=== PATIENT | male | born 2000 | race Caucasian/White ===

== ENCOUNTER 2024-08-28 15:43 | Emergency (ER) | payer OTHER, SELFPAY ==
[2024-08-28 16:48] VITALS: BP 123/80; PULSE 65; O2SAT 98
[2024-08-28 16:58] VITALS: BP 123/80; PULSE 60; RESP 18; TEMP 36.8; O2SAT 100; BMI 28.7
[2024-08-28 16:58] LABS: Coronavirus 19, PCR Not Detected (NotDetected); Influenza A, PCR Not Detected (NotDetected); Influenza B, PCR Not Detected (NotDetected)
[2024-08-28 17:00] VITALS: BP 124/84; PULSE 62; O2SAT 96
[2024-08-28 17:24] VITALS: BP 124/84; PULSE 80; RESP 17; TEMP 36.8; O2SAT 98
--- NOTE | 2024-08-28 17:33 | ED_ITS ---
Discharge Plan Disposition Patient Disposition: Home, Self-Care Condition: Good Prescriptions Prescriptions: New fluticasone propionate [Flonase Allergy Relief] 50 mcg/actuation spray,suspension 1 spray intranasal DAILY Qty: 16 0RF Rx Instructions: administer into each nostril kbziltuodkbudfa-abvnbbmfy-CC [Bromfed DM] 2-30-10 mg/5 mL syrup 5 ml PO Q6H PRN (Reason: cold symptoms) Qty: 118 0RF Referrals Follow up/Referrals: Provider,Referral, [Primary Care Provider] - See instructions Activity Restrictions/Add. Instructions Additional Instructions/Restrictions: You were evaluated in the emergency department today. We feel your symptoms are the result of a viral upper respiratory infection. Your swab is pending at this time. Please take Tylenol and ibuprofen every 4-6 hours as needed for pain or fever. 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 Follow-up closely with your primary care provider. Return to the emergency department for new or worsening symptoms Clinical Impressions Clinical Impression: Viral URI with cough Stand Alone Forms Stand Alone Forms: Work/School Release Instructions Patient Instructions: DI for Viral Upper Respiratory Infection -- Adult, DI for Viral Syndrome Print Language Print Language: [place] Discharge ED Provider: Ruby Oswald General Adult HPI General Chief complaint: Upper Respiratory Infection Stated complaint: Cough,runny nose,no taste Time Seen by Provider: 08/28/24 16:44 Mode of Arrival: Ambulatory Source of Information: Patient Description of Symptoms (Recalled from ER Triage Doc. by RN): Pt presents for evaluation of nasal congestion/drainage, coughing and lack of taste x 3 days. History of Present Illness HPI narrative: This patient is a 24-year-old male without significant past medical history presenting to the emergency department for evaluation with concern for nasal congestion, drainage, cough, and lack of taste for 3 days. His at home was recently sick as well. No other concerns noted at this time Related Data Previous Rx's ?Medication ?Instructions ?Recorded manzhfnhhzrgsgu-gyjksvwvjnmvvfs-IO 5 ml PO Q6H PRN cold symptoms #118 08/28/24 2 mg-30 mg-10 mg/5 mL oral syrup mL (Bromfed DM) fluticasone propionate 50 1 spray intranasal DAILY #16 grams 08/28/24 mcg/actuation nasal spray,suspension (Flonase Allergy Relief) Allergies Allergy/AdvReac Type Severity Reaction Status Date / Time No Known Allergies Allergy Verified 08/28/24 17:18 [facility] Disclaimer: The information contained in this section may have been updated after the p atient was seen, as this information can be updated by other users. Social History Smoking Status: Current every day smoker alcohol intake: never current occupational status: employed Travel in the last 8 weeks?: None ROS Obtained: Yes All systems reviewed & no additional complaints except as documented Physical Exam General General appearance: alert and in no apparent distress Head Head exam: atraumatic and normocephalic Eye Eye exam: Present normal appearance, PERRL and EOMI ENT ENT exam: Present normal exam, normal oropharynx, mucous membranes moist and normal external ear exam Neck Neck exam: Present normal inspection, full ROM and trachea midline; Absent tenderness Chest Chest inspection: Present normal inspection and symmetric chest wall rise; Absent tenderness Respiratory Respiratory exam: Present normal lung sounds bilaterally; Absent respiratory distress, wheezes, stridor or accessory muscle use Cardiovascular Cardiovascular exam: Present regular rate and normal rhythm Abdominal Exam Abdominal exam: Present soft; Absent distention, tenderness or guarding Extremities Exam Extremities exam: Present normal inspection, full ROM and normal capillary refill; Absent tenderness or edema Back Exam Back exam: Present normal inspection and full ROM; Absent tenderness Neurological Exam Neurological exam: Present alert, oriented X3, CN II-XII intact and normal gait; Absent motor sensory deficit Psychiatric Psychiatric exam: Present normal affect and normal mood Skin Skin exam: Present warm and dry Medical Decision Making Medical Records Medical records reviewed: Yes I reviewed the patient's medical records. Screening: Per USPSTF and CDC recommendations, given the prevalence of disease in our region, it is our hospital?s policy to screen for HIV and viral Hepatitis for all patients aged 18 and over and those with ongoing risk factors. [place] Inquiry Pt receiving controlled substance: No Vital Signs: 08/28/24 16:48 08/28/24 16:58 08/28/24 17:00 Temperature 98.3 F Temperature Source Oral Pulse Rate 65 62 Pulse Rate [Right] 60 Respiratory Rate 18 Blood Pressure 123/80 124/84 Blood Pressure [Right Arm] 123/80 Blood Pressure Mean [Right Arm] 94 Blood Pressure Source Blood Pressure Source [Right Arm] Automatic Cuff Blood Pressure Position [Right Arm] Sitting 02 Sat by Pulse Oximetry 98 100 96 Oxygen Delivery Method Room Air Room Air Room Air 08/28/24 17:24 Temperature 98.3 F Temperature Source Oral Pulse Rate 80 Pulse Rate [Right] Respiratory Rate 17 Blood Pressure 124/84 Blood Pressure [Right Arm] Blood Pressure Mean [Right Arm] Blood Pressure Source Automatic Cuff Blood Pressure Source [Right Arm] Blood Pressure Position [Right Arm] 02 Sat by Pulse Oximetry Oxygen Delivery Method Room Air Lab Data Lab results reviewed: Yes I reviewed the patient's lab results. Orders (Tests/Meds): ORDERS Category Date Time Status Rapid PCR Covid and Flu A/B Stat Lab 08/28/24 16:53 Received Medical Decision Narrative: In summary, this patient is a 24-year-old male presenting to the Emergency Department for evaluation of congestion, cough, lack of taste. Differential diag noses considered include but are not limited to viral syndrome, pneumonia, pharyngitis, allergic rhinitis. Ruling out the most morbid conditions drove assessment. On exam, the patient is well-appearing with no focal findings on exam to suggest acute bacterial infection. I feel he likely has a viral syndrome, especially since his at home was also sick. COVID/flu swab was sent and is pending. I do feel the patient is appropriate for discharge with instructions for supportive management. I provided prescriptions for Bromfed and Flonase and discharged the patient with instructions for close follow-up on an outpatient basis and strict return precautions Critical Care Critical Care Time Critical Care Time: No
== END 2024-08-28 17:26 | disposition home or self-care (01) ==
PROVIDERS: Emergency Provider Emergency Medicine
DX: R09.81 Nasal congestion (principal); J06.9 Acute upper respiratory infection, unspecified; R05.9 Cough, unspecified; F17.210 Nicotine dependence, cigarettes, uncomplicated
CPT/HCPCS: 87636; 99283

== ENCOUNTER 2024-08-31 12:57 | Emergency (ER) | payer OTHER, SELFPAY ==
[2024-08-31 13:02] VITALS: BP 116/72; PULSE 59; RESP 18; TEMP 36.8; O2SAT 100; BMI 28.7
--- NOTE | 2024-08-31 13:21 | XR_ITS ---
FINAL REPORT TECHNIQUE: Chest PA & Lateral CLINICAL HISTORY: New productive cough COMPARISON: None FINDINGS: 2 views of the chest were performed. The heart size is normal. The mediastinum is within normal limits. There is no acute cardiopulmonary process. There are no pleural effusions. There is no pneumothorax. The bony thorax appears intact. IMPRESSION: No acute cardiopulmonary process. Reviewed, Interpreted and Dictated by Tristin Mackay MD Transcribed by Leydi Demarco Authenticated and [facility]
[2024-08-31] MEDS: predniSONE 20MG TAB 40 MG PO (13:39)
--- NOTE | 2024-08-31 14:08 | ED_ITS ---
Discharge Plan Disposition Patient Disposition: Home, Self-Care Prescriptions Prescriptions: New prednisone 20 mg tablet 40 mg PO DAILY 5 Days Qty: 10 0RF No Action fluticasone propionate [Flonase Allergy Relief] 50 mcg/actuation spray,suspens ion 1 spray intranasal DAILY Qty: 16 0RF Rx Instructions: administer into each nostril eomzzkrdjvfbcck-ifkxvswce-FA [Bromfed DM] 2-30-10 mg/5 mL syrup 5 ml PO Q6H PRN (Reason: cold symptoms) Qty: 118 0RF Referrals Follow up/Referrals: Provider,Referral, MD [Primary Care Provider] - See instructions Activity Restrictions/Add. Instructions Additional Instructions/Restrictions: Call your family doctor to establish care for this visit to the emergency department and schedule follow-up within 48 hours to ensure improvement. If you have any worsening of your condition or any other concerning signs or symptoms, return to the emergency department or your primary care doctor for further evaluation. Clinical Impressions Clinical Impression: Bronchitis Print Language Print Language: Romanian Discharge ED Provider: Dave Stiles General Adult HPI General Chief complaint: Upper Respiratory Infection Stated complaint: Coughing up blood Time Seen by Provider: 08/31/24 13:01 Mode of Arrival: Ambulatory Source of Information: Patient Description of Symptoms (Recalled from ER Triage Doc. by RN): Pt presents for further evaluation of cough and congestion. States he has been coughing up blood tinged sputum. Pt states he also needs a doctors note. History of Present Illness HPI narrative: Please note that above description of symptoms, in this electronic medical record under categorization of recalled from ER triage doctor by RN are reflective of an initial nursing assessment, however, is not reflective of my full history and physical exam that was personally taken and clarified. Consequentially, this preceding description of symptoms, which may include the patient's categorized chief complaint in the EMR, do not reflect my personal clinical impression, and the ultimate description of history of present illness and patient stated complaints should be deferred to this section of the note. Unless stated otherwise or congruent with this section of the note, additional signs, symptoms, or incongruence should be interpreted as inaccurate with my clinical impression. Related Data Previous Rx's ?Medication ?Instructions ?Recorded dgmjgvnkurppebu-fsobhldkmlspgvy-TB 5 ml PO Q6H PRN cold symptoms #118 08/28/24 2 mg-30 mg-10 mg/5 mL oral syrup mL (Bromfed DM) fluticasone propionate 50 1 spray intranasal DAILY #16 grams 08/28/24 mcg/actuation nasal spray,suspension (Flonase Allergy Relief) prednisone 20 mg tablet 40 mg (2 x 20 mg) PO DAILY 5 days 08/31/24 #10 tabs Allergies Allergy/AdvReac Type Severity Reaction Status Date / Time No Known Allergies Allergy Verified 08/28/24 17:18 [facility] Disclaimer: The information contained in this section may have been updated after the patient was seen, as this information can be updated by other users. Social History (Updated 08/28/24 @ 17:34 by Ruby Oswald DO) Smoking Status: Never smoker alcohol intake: never current occupational status: employed Travel in the last 8 weeks?: None Have you lived/traveled outside US in past 30 days?: No Contact w/someone who lives/traveled outside US past 30 days?: No Exposure to someone with infectious disease in past 14 days?: No Do you have a fever (greater than 100.4 F or 38 C)?: No Have you tested positive for COVID-19?: No Exposed to someone with COVID-19 in past 14 days?: No Do you have a sore throat?: No Do you have a cough?: Yes Do you have any weakness?: No Do you have any diarrhea?: No Are you experiencing any unusual bleeding?: No Do you have any muscle aches/pain?: No Do you have any abdominal pain?: No Are you experiencing loss of taste or smell?: No ROS Obtained: Yes All systems reviewed & no additional complaints except as documented Physical Exam General General appearance: alert Head Head exam: atraumatic and normocephalic Eye Eye exam: Present normal appearance, PERRL and EOMI Neck Neck exam: Present normal inspection, full ROM and trachea midline Respiratory Respiratory exam: Absent respiratory distress, wheezes, stridor, accessory muscle use or prolonged expiratory phase Cardiovascular Cardiovascular exam: Present other (Pulses equal symmetric in upper and lower extremities) Abdominal Exam Abdominal exam: Present soft; Absent distention, tenderness or pulsatile mass Extremities Exam Extremities exam: Absent edema Neurological Exam Neurological exam: Present alert, oriented X3 and CN II-XII intact; Absent motor sensory deficit Skin Skin exam: Present warm and dry; Absent diaphoresis or erythema Medical Decision Making Medical Records Medical records reviewed: Yes I reviewed the patient's medical records. Screening: Per USPSTF and CDC recommendations, given the prevalence of disease in our region, it is our hospital?s policy to screen for HIV and viral Hepatitis for all patients aged 18 and over and those with ongoing risk factors. Franklyn Inquiry Pt receiving controlled substance: No Franklyn was queried for this patient: No Vital Signs: 08/31/24 13:02 Temperature 98.3 F Temperature Source Oral Pulse Rate [Right] 59 L Respiratory Rate 18 Blood Pressure [Right Arm] 116/72 Blood Pressure Mean [Right Arm] 86 Blood Pressure Source [Right Arm] Automatic Cuff Blood Pressure Position [Right Arm] Sitting 02 Sat by Pulse Oximetry 100 Oxygen Delivery Method Room Air Orders (Tests/Meds): ED MEDICATIONS Discontinued Medications Generic Name Dose Route Start Last Admin Trade Name Freq PRN Reason Stop Dose Admin Prednisone 40 mg 08/31/24 13:21 08/31/24 13:39 Prednisone 20mg Tab PO 08/31/24 13:22 40 mg ONCE ONE Administration ORDERS Category Date Time Status CXR 2 view (NOT portable) [XR chest 2V] Stat Exams 08/31/24 13:21 Taken Medical Decision Narrative: 24-year-old male presenting with cough. States that he has been coughing for the past few days, came and was given a cough medicine which did not seem to help, so he stopped taking it. Intermittently coughing up small flecks of dark red blood. No fevers, chills, nausea, vomiting, blood in his stool, vomiting, abdominal pain, chest pain, etc. History was obtained via conversation with patient. On arrival, patient hemodynamically stable, alert, oriented x4, appropriate, GCS 15, moving all extremities spontaneously, pupils equal and reactive to light. Full physical exam performed and significant for well- appearing male no acute distress. Lungs are clear anterior and posterior bilaterally, speaking full sentences. Differential includes bronchitis, pneumon ia, among others. Patient was given 40 mg prednisone. Chest x-ray ordered and independently interpreted. It is appears that he has bronchial inflammation, no consolidation. Because patient at baseline without signs or symptoms of clinical decompensation, deemed appropriate for discharge. Results were relayed to patient who voiced understanding and were agreeable to outpatient management and follow up. I discussed my clinical impression with patient and answered all questions. At this time, the evidence for any other entities in the differential is insufficient to warrant any further testing or ED observation. This was explained as well. Advisory was given that persistent or worsening symptoms require further evaluation. I confirmed the understanding of this discussion. Promotions Officer disclaimer Much of this encounter note is an electronic engine specialist spoken language to printed text. Electronic engine specialist of the spoken language may permit errors. Although I have reviewed the note, some errors may still exist. Critical Care Critical Care Time Critical Care Time: No
[2024-08-31 14:46] VITALS: BP 110/65; PULSE 61; RESP 16; TEMP 36.6; O2SAT 96
== END 2024-08-31 14:46 | disposition home or self-care (01) ==
PROVIDERS: Emergency Provider Emergency Medicine
DX: J20.9 Acute bronchitis, unspecified (principal)
CPT/HCPCS: 71046; 99283

== ENCOUNTER 2024-09-03 13:09 | Emergency (ER) | payer OTHER, SELFPAY ==
[2024-09-03 13:38] VITALS: BP 129/78; PULSE 62; RESP 14; O2SAT 96
[2024-09-03 14:07] VITALS: BP 134/86; PULSE 66; RESP 20; TEMP 36.8; O2SAT 99; BMI 26.1
--- NOTE | 2024-09-03 15:08 | ED_ITS ---
<Statement entered by Rosalino Laird MD - 09/03/24 15:59> I was consulted by the KUMAR, and we discussed the complexity of the problems being addressed. I approved the treatment and management plan for this patient's care in the emergency department, thus performing a substantive portion of the medical decision making. Rosalino Laird MD, JOSEF, FACEP Discharge Plan Disposition Patient Disposition: Home, Self-Care Prescriptions Prescriptions: No Action fluticasone propionate [Flonase Allergy Relief] 50 mcg/actuation spray,suspension 1 spray intranasal DAILY Qty: 16 0RF Rx Instructions: administer into each nostril ikercftvxqwbaco-vunafsuxq-KF [Bromfed DM] 2-30-10 mg/5 mL syrup 5 ml PO Q6H PRN (Reason: cold symptoms) Qty: 118 0RF prednisone 20 mg tablet 40 mg PO DAILY 5 Days Qty: 10 0RF Referrals Follow up/Referrals: Provider,Referral, [Primary Care Provider] - See instructions Activity Restrictions/Add. Instructions Additional Instructions/Restrictions: Increase fluids and rest. Continue to take steroids. May also take allergy pill Zyrtec or Claritin daily for other symptoms. Clinical Impressions Clinical Impression: Viral URI with cough Stand Alone Forms Stand Alone Forms: Work/School Release Instructions Patient Instructions: Common Cold Print Language Print Language: Azerbaijani Discharge ED Provider: Rosalino Laird General Adult HPI General Chief complaint: Upper Respiratory Infection Stated complaint: upper respiratory infection+ Time Seen by Provider: 09/03/24 14:16 Mode of Arrival: Ambulatory Description of Symptoms (Recalled from ER Triage Doc. by RN): seen here on for uri and given steroids aint any better History of Present Illness HPI narrative: This is a 24-year-old male who presents to the ED today for complaint of not being better after being seen here on . He states that he has had x- rays of his lungs and they were inflamed. He says he has had cough for 3 days with some mucus coming out. He was diagnosed with bronchitis and an upper respiratory infection when he was seen. Patient was placed on steroids and has 2 days left of taking his steroids. He feels like he is just not better. He denies any other symptoms at this time. He says he initially came in just for a work note but then his girlfriend wanted him to be seen again today. He and I d iscussed this and I will listen to his lungs and his lungs were clear today. His exam was negative today. Related Data Previous Rx's ?Medication ?Instructions ?Recorded tikpfmpgkxhrjsi-bheknrhzufscyxf-GR 5 ml PO Q6H PRN cold symptoms #118 08/28/24 2 mg-30 mg-10 mg/5 mL oral syrup mL (Bromfed DM) fluticasone propionate 50 1 spray intranasal DAILY #16 grams 08/28/24 mcg/actuation nasal spray,suspension (Flonase Allergy Relief) prednisone 20 mg tablet 40 mg (2 x 20 mg) PO DAILY 5 days 08/31/24 #10 tabs Allergies Allergy/AdvReac Type Severity Reaction Status Date / Time No Known Allergies Allergy Verified 08/28/24 17:18 [facility] Disclaimer: The information contained in this section may have been updated after the patient was seen, as this information can be updated by other users. Social History (Updated 08/28/24 @ 17:34 by Ruby Oswald DO) Smoking Status: Current every day smoker alcohol intake: never current occupational status: employed Travel in the last 8 weeks?: None Have you lived/traveled outside US in past 30 days?: No Contact w/someone who lives/traveled outside US past 30 days?: No Exposure to someone with infectious disease in past 14 days?: No Do you have a fever (greater than 100.4 F or 38 C)?: No Have you tested positive for COVID-19?: No Exposed to someone with COVID-19 in past 14 days?: No Do you have a sore throat?: No Do you have a cough?: No Do you have any weakness?: No Do you have any diarrhea?: No Are you experiencing any unusual bleeding?: No Do you have any muscle aches/pain?: No Do you have any abdominal pain?: No Are you experiencing loss of taste or smell?: No Other Medical History Have you received the Flu Vaccine for this season: No Have you received the Pneumonia Vaccine: No ROS Obtained: Yes Systems reviewed as appropriate & no additional complaints except as documented Constitutional Constitutional: Reports as per HPI Physical Exam General General appearance: alert and in no apparent distress Head Head exam: atraumatic and normocephalic Eye Eye exam: Present normal appearance, PERRL and EOMI ENT ENT exam: Present normal exam, normal oropharynx and mucous membranes moist Neck Neck exam: Present normal inspection, full ROM and trachea midline Respiratory Respiratory exam: Present normal lung sounds bilaterally Cardiovascular Cardiovascular exam: Present regular rate, normal rhythm, normal heart sounds, +S1 and +S2 Abdominal Exam Abdominal exam: Present soft and normal bowel sounds Extremities Exam Extremities exam: Present normal inspection, full ROM and normal capillary refill Neurological Exam Neurological exam: Present alert, oriented X3 and normal gait Skin Skin exam: Present warm, dry and intact Medical Decision Making Medical Records Screening: Per USPSTF and CDC recommendations, given the prevalence of disease in our region, it is our hospital?s policy to screen for HIV and viral Hepatitis for all patients aged 18 and over and those with ongoing risk factors. Franklyn Inquiry Pt receiving controlled substance: No Frank[place] was queried for this patient: No Vital Signs: 09/03/24 13:38 09/03/24 14:07 09/03/24 15:27 Temperature 98.2 F 98.2 F Temperature Source Oral Pulse Rate 62 80 Pulse Rate [Left Radial] 66 Respiratory Rate 14 20 20 Blood Pressure 129/78 140/78 Blood Pressure [Right Arm] 134/86 Blood Pressure Mean [Right Arm] 102 Blood Pressure Source Automatic Cuff Blood Pressure Position Sitting 02 Sat by Pulse Oximetry 96 99 Oxygen Delivery Method Room Air Room Air Room Air Medical Decision Narrative: Insert review patient is a 24-year-old male presenting to the emergency department for evaluation of coughing with productive mucus, upper respiratory symptoms. He was here on and was evaluated, had an x-ray of his lungs and was told that his lungs were inflamed and he was placed on steroids. He was told if he was not improved please return. He is here and just wants to be reseen today because he has had steroids for 3 days and feels like this is not working. Patient tells me that nothing is really worse other than he has some mucus. Patient is hemodynamically stable and nontoxic-appearing upon arrival, afebrile. Differential diagnosis includes viral illness, allergy symptoms, among others. Workup will need to be completed today as he had full workup on when he was seen. Discussed with patient that he will be taking fwfp-hmj-skjirep medicine and finish out his steroids and follow-up with his PCP for further problems or concerns. Critical Care Critical Care Time Critical Care Time: No
[2024-09-03 15:27] VITALS: BP 140/78; PULSE 80; RESP 20; TEMP 36.8; O2SAT 98
== END 2024-09-03 15:28 | disposition home or self-care (01) ==
PROVIDERS: Emergency Provider Student in an Organized Health Care Education/Training Program
DX: J06.9 Acute upper respiratory infection, unspecified (principal); R05.1 Acute cough
CPT/HCPCS: 99282